=== PATIENT | female | born 1930 | race Caucasian/White ===

== ENCOUNTER 2016-08-16 15:41 | Emergency (ER) | payer OTHER ==
[~2016-08-16] VITALS: Ht 167.6 cm; Wt 49.9 kg
[~2016-08-16 15:41] MED LIST: BENA10TA2 PO; GLIP5TAB13 PO; HYDR-1189 PO; RANI300T4 PO
[2016-08-16 15:50] VITALS: BP 139/75; PULSE 94; RESP 20; TEMP 97.8; O2SAT 99
--- NOTE | 2016-08-16 15:50 | NUR ---
Pt BIB BLS and placed to ER bed 4. Pt report given to MICHELLE Sánchez and Dr. Howard.
--- NOTE | 2016-08-16 16:05 | NUR ---
Dr. Howard at bedside to assess pt.
--- NOTE | 2016-08-16 16:30 | NUR ---
Pt to radiology via stretcher.
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
--- NOTE | 2016-08-16 16:45 | NUR ---
Pt returns from radiology. No needs verbalized at this time.
[2016-08-16 17:21] VITALS: BP 123/76; PULSE 75; RESP 16; TEMP 98; O2SAT 98
--- NOTE | 2016-08-16 17:23 | NUR ---
Note undone in EDM - 08/16/16 at 1753 by JODY Patient given written and verbal discharge instructions and verbalizes understanding. ER MD discussed with patient the results and treatment provided. Given copies of tests performed in ER. Patient in stable condition. ID arm band removed. Rx of ulyssesan given. Patient educated on pain management and to follow up with PMD. Pain Scale . Opportunity for questions provided and answered.
--- NOTE | 2016-08-16 17:45 | NUR ---
PT DISCHARGE PENDING CT RESULTS
--- NOTE | 2016-08-16 17:48 | NUR ---
Patient given written and verbal discharge instructions and verbalizes understanding. ER MD discussed with patient the results and treatment provided. Given copies of tests performed in ER. Patient in stable condition. ID arm band removed. Rx of given. Pain Scale 0. Opportunity for questions provided and answered.
== END 2016-08-16 17:21 | disposition home or self-care (01) ==
LOC: SED 15:41
DX: S50.02XA Contusion of left elbow, initial encounter (principal); S09.90XA Unspecified injury of head, initial encounter; E11.9 Type 2 diabetes mellitus without complications; F03.90 Unspecified dementia, unspecified severity, without behavioral disturbance, psychotic disturbance, mood disturbance, and anxiety; I10 Essential (primary) hypertension; W01.10XA Fall on same level from slipping, tripping and stumbling with subsequent striking against unspecified object, initial encounter; Y93.89 Activity, other specified; Y99.8 Other external cause status; Y92.89 Other specified places as the place of occurrence of the external cause
CPT/HCPCS: 70450-TC; 99284

== ENCOUNTER 2016-11-24 15:47 | Inpatient (IN) | payer OTHER ==
[~2016-11-24] VITALS: Ht 170.2 cm; Wt 63.6 kg
[2016-11-24 15:47] VITALS: BP_SYST 127
[2016-11-24] MEDS ORDERED: BACITRACIN 1 GM OINT TP ONE ×2 (16:00→20:59)
[2016-11-24] MEDS ORDERED: MIDAZOLAM HCL 5 MG/5 ML VIAL IM ONE (16:45)
[2016-11-24] MEDS ORDERED: LORazepam 2 MG/ML VIAL (FOR ER USE) IM ONE (17:15)
[2016-11-24] MEDS ORDERED: LORazepam 2 MG/ML VIAL (FOR ER USE) IVP ONE ×2 (17:30→18:45)
[2016-11-24 17:38] LABS: BASOPHILS % (AUTO) 0.4 % (0.0-2.0); EOSINOPHILS # (AUTO) 0.2 K/uL (0.0-0.4); EOSINOPHILS % (AUTO) 3.3 % (0.0-4.0); HEMATOCRIT 35.8 % (36-48); HEMOGLOBIN 12.1 g/dL (12.0-16.0); LYMPHOCYTES # (AUTO) 0.9 K/uL (1.0-5.5); LYMPHOCYTES % (AUTO) 16.3 % (20.5-51.5); MEAN CORPUSCULAR HEMOGLOBIN 32 pg (27-31); MEAN CORPUSCULAR HGB CONC 34 % (32-36); MEAN CORPUSCULAR VOLUME 94 fL (79.0-98.0); MONOCYTES # (AUTO) 0.5 K/uL (0.0-1.0); PLATELET COUNT (AUTO) 172 K/uL (130-430); RED BLOOD CELL COUNT(AUTO) 3.83 MIL/uL (4.2-6.2); WHITE BLOOD COUNT (AUTO) 5.6 K/uL (4.8-10.8)
[2016-11-24 17:47] LABS: ANION GAP 8 (5-15); CALCIUM 9.2 mg/dL (8.4-11.0); CHLORIDE 106 mmol/L (98-107); CREATININE 1.06 mg/dL (0.55-1.30); GLUCOSE 140 mg/dL (70-99); SODIUM SERUM 139 mmol/L (136-145); UREA NITROGEN, BLOOD 26 mg/dL (8-21)
[2016-11-24] MEDS ORDERED: DIPHENHYDRAMINE INJ 50 MG/ML VIAL IVP ONE (19:00)
[2016-11-24] MEDS ORDERED: GLIP10TA11 PO (22:10)
[2016-11-24] MEDS ORDERED: METO25TA6 PO (22:10)
[2016-11-24] MEDS ORDERED: MEMA5TAB PO (22:10)
[2016-11-24] MEDS ORDERED: METF-795 PO (22:10)
[2016-11-24] MEDS ORDERED: SIMV10TA6 PO (22:10)
[2016-11-24] MEDS ORDERED: RANI300T4 PO (22:10)
[2016-11-24] MEDS ORDERED: VENL37.510 PO (22:10)
[2016-11-24] MEDS ORDERED: BENA10TA2 PO (22:10)
[2016-11-24] MEDS ORDERED: MORPHINE 2 MG/ML INJ. SYRINGE IVP PRN (22:15)
[2016-11-24 22:54] VITALS: BP_SYST 124
[2016-11-25] VITALS: BP_SYST 136
[2016-11-25 04:00] VITALS: BP_SYST 142
[2016-11-25 08:00] VITALS: BP_SYST 116
[2016-11-25] MEDS ORDERED: DEXTROSE 50% JECT 50 ML DISP.SYRIN IVP PRN (11:00)
[2016-11-25] MEDS ORDERED: GLUCOSE 15 GM GEL (in 37.5 GM TUBE) PO PRN ×2 (11:30)
[2016-11-25] MEDS ORDERED: DEXTROSE 50%-WATER 50 ML DISP.SYRIN IVP PRN ×2 (11:30)
[2016-11-25] MEDS ORDERED: METOPROLOL TARTRATE 25 MG TABLET PO ONE (11:45)
[2016-11-25 12:00] VITALS: BP_SYST 111
[2016-11-25] MEDS: INSULIN REGULAR, HUMAN 100 UNITS/ML, 10 ML VIAL (novoLIN R) SUBCUT PRN ×2 (12:46→18:14)
[2016-11-25 17:26] VITALS: BP_SYST 122
[2016-11-25 21:55] VITALS: BP_SYST 115
[2016-11-25] MEDS: METOPROLOL TARTRATE 25 MG TABLET PO SCH (21:55)
[2016-11-26 04:59] VITALS: BP_SYST 118
[2016-11-26 08:00] VITALS: BP_SYST 112
[2016-11-26 08:13] LABS: ANION GAP 5 (5-15); CALCIUM 9.1 mg/dL (8.4-11.0); CHLORIDE 105 mmol/L (98-107); CREATININE 0.91 mg/dL (0.55-1.30); GLUCOSE 163 mg/dL (70-99); POTASSIUM 4.2 mmol/L (3.5-5.1); SODIUM SERUM 139 mmol/L (136-145); UREA NITROGEN, BLOOD 21 mg/dL (8-21)
[2016-11-26] MEDS: METOPROLOL TARTRATE 25 MG TABLET PO SCH (08:16)
[2016-11-26 08:21] LABS: ALANINE AMINOTRANSFERASE 18 U/L (12-78); ALBUMIN 3.7 g/dL (3.4-4.8); ASPARTATE AMINOTRANSFERASE 16 U/L (10-37); TOTAL BILIRUBIN 0.6 mg/dL (0.0-1.0); TOTAL PROTEIN, SERUM 7.7 g/dL (6.4-8.3)
[2016-11-26 08:26] LABS: BASOPHILS % (AUTO) 0.5 % (0.0-2.0); EOSINOPHILS # (AUTO) 0.2 K/uL (0.0-0.4); EOSINOPHILS % (AUTO) 2.8 % (0.0-4.0); HEMATOCRIT 38.5 % (36-48); HEMOGLOBIN 13.1 g/dL (12.0-16.0); LYMPHOCYTES # (AUTO) 0.7 K/uL (1.0-5.5); LYMPHOCYTES % (AUTO) 12.9 % (20.5-51.5); MEAN CORPUSCULAR HEMOGLOBIN 32 pg (27-31); MEAN CORPUSCULAR HGB CONC 34 % (32-36); MEAN CORPUSCULAR VOLUME 94 fL (79.0-98.0); MONOCYTES # (AUTO) 0.5 K/uL (0.0-1.0); MONOCYTES % (AUTO) 8.8 % (1.7-9.3); NEUTROPHILS # (AUTO) 4.1 K/uL (1.8-7.7); PLATELET COUNT (AUTO) 197 K/uL (130-430); RED BLOOD CELL COUNT(AUTO) 4.12 MIL/uL (4.2-6.2); RED CELL DISTRIBUTION WIDTH 12.1 % (9.0-15.0); WHITE BLOOD COUNT (AUTO) 5.5 K/uL (4.8-10.8)
[2016-11-26] MEDS ORDERED: BENAZEPRIL HCL 10 MG TABLET (LOTENSIN) PO SCH (09:00)
[2016-11-26 11:08] VITALS: BP_SYST 100
[2016-11-26] MEDS: INSULIN REGULAR, HUMAN 100 UNITS/ML, 10 ML VIAL (novoLIN R) SUBCUT PRN (11:38)
[2016-11-26 12:00] VITALS: BP_SYST 100
== END 2016-11-26 15:24 | disposition home health service (06) | DRG 882 ==
LOC: EDBD 15:47 → SED 15:47 → MERGE 22:11 → STU 22:11
PROVIDERS: ADMIT Internal Medicine Hospice and Palliative Medicine; ATTEND Internal Medicine Hospice and Palliative Medicine
DX: F48.8 Other specified nonpsychotic mental disorders (principal); I10 Essential (primary) hypertension; G30.9 Alzheimer's disease, unspecified; F02.80 Dementia in other diseases classified elsewhere, unspecified severity, without behavioral disturbance, psychotic disturbance, mood disturbance, and anxiety; E11.9 Type 2 diabetes mellitus without complications; S09.90XA Unspecified injury of head, initial encounter; S16.1XXA Strain of muscle, fascia and tendon at neck level, initial encounter; S40.012A Contusion of left shoulder, initial encounter; Z79.899 Other long term (current) drug therapy; W18.39XA Other fall on same level, initial encounter; Y93.89 Activity, other specified; Y92.89 Other specified places as the place of occurrence of the external cause; Y99.8 Other external cause status; Z90.49 Acquired absence of other specified parts of digestive tract
CPT/HCPCS: 36415; 70450-TC; 72125-TC; 73030; 80048; 80053; 82962; 84484; 85025; 85610-TC; 85730-TC; 93005; 96374; 96375; 96376; 97116-GP; 97530-GP; 99285; J1200; J1815; J2060; J2250